=== PATIENT | male | born 1995 ===

== ENCOUNTER 2021-05-27 16:52 | Emergency (ER) | payer SELFPAY ==
[2021-05-27] MEDS ORDERED: LIDOCAINE-MPF (1%) 10 MG/1 ML VIAL 5 ML INFILTRATI ONE (21:33)
[2021-05-27 21:36] LABS: Bilirubin,Urine NEG (Negative); Blood,Urine NEG (Negative); Color,Urine Yellow (Yellow); Mucus,Urine FEW /HPF; Protein,Urine <15 mg/dL mg/dL (Negative); RBC,Urine < 1.0 /HPF (0.0-6.0)
--- NOTE | 2021-05-27 21:56 | Emergency Department Report ---
ED Male HPI - General Chief complaint: Urogenital-Male Stated complaint: BURNING URINATION Source: patient Mode of arrival: Ambulatory Limitations: No Limitations - History of Present Illness Initial comments: Patient is a 25-year-old male with no past medical history presented to the ED with complaint of acute onset persistent dysuria, penile discharge, urinary frequency and urgency for the last 5 days. Patient stated that he had unprotected sexual intercourse about 1 week ago with a new sexual partner. Patient denies testicular pain, dizziness, syncope, chest pain, shortness of breath, abdominal pain, back pain, hematuria, fever and chills or nausea and vomiting. MD Complaint: penile discharge, dysuria -: Sudden, days(s) (5) Location: penis Radiation: none Severity: severe Severity scale (0 -10): 7 Quality: aching, burning Consistency: constant Improves with: none Worsens with: urination denies other symptoms, discharge, dysuria. denies: swelling, mass, rash, urinary retention, blood in urine, fever, nausea/vomiting - Related Data Sexually active: Yes Previous Rx's Medication Instructions Recorded Last Taken Type Doxycycline Hyclate 100 mg PO Q12H #28 capsule 05/27/21 Unknown Rx Allergies Allergy/AdvReac Type Severity Reaction Status Date / Time No Known Allergies Allergy Unverified 05/27/21 20:09 ED Review of Systems ROS: Stated complaint: BURNING URINATION Other details as noted in HPI Constitutional: malaise. denies: chills Eyes: denies: eye pain, eye discharge, vision change ENT: denies: ear pain, throat pain, dental pain, congestion Respiratory: denies: cough, shortness of breath, wheezing Cardiovascular: denies: chest pain, palpitations Endocrine: no symptoms reported Gastrointestinal: denies: abdominal pain, nausea, diarrhea Genitourinary: urgency, dysuria, frequency, discharge. denies: testicular pain, testicular mass Musculoskeletal: denies: back pain, joint swelling, arthralgia Skin: denies: rash, lesions Neurological: denies: headache, weakness, paresthesias Psychiatric: denies: anxiety, depression Hematological/Lymphatic: denies: easy bleeding, easy bruising ED Past Medical Hx - Past Medical History Previous Medical History?: No - Surgical History Past Surgical History?: No - Medications Home Medications: Home Medications Medication Instructions Recorded Confirmed Last Taken Type Doxycycline Hyclate 100 mg PO Q12H #28 capsule 05/27/21 Unknown Rx ED Physical Exam - General Limitations: No Limitations General appearance: alert, in no apparent distress - Head Head exam: Present: atraumatic, normocephalic, normal inspection - Eye Eye exam: Present: normal appearance, PERRL, EOMI Pupils: Present: normal accommodation - ENT ENT exam: Present: normal exam, normal orophraynx, mucous membranes moist, TM's normal bilaterally, normal external ear exam - Neck Neck exam: Present: normal inspection, full ROM - Respiratory Respiratory exam: Present: normal lung sounds bilaterally. Absent: respiratory distress, wheezes, rales, rhonchi, chest wall tenderness, accessory muscle use, decreased breath sounds, prolonged expiratory - Cardiovascular Cardiovascular Exam: Present: regular rate, normal rhythm, normal heart sounds. Absent: systolic murmur, diastolic murmur, rubs, gallop - GI/Abdominal GI/Abdominal exam: Present: soft, normal bowel sounds. Absent: tenderness, guarding, rebound, hyperactive bowel sounds, hypoactive bowel sounds, organomegaly, mass - exam: Present: urethral discharge. Absent: scrotal swelling, vertical testicular lie External exam: Absent: normal external exam, erythema, swelling, lesions, ecchymosis, bleeding - Extremities Exam Extremities exam: Present: normal inspection, full ROM, normal capillary refill - Back Exam Back exam: Present: normal inspection, full ROM. Absent: tenderness, CVA tenderness (R), CVA tenderness (L), muscle spasm, paraspinal tenderness, vertebral tenderness - Neurological Exam Neurological exam: Present: alert, oriented X3, CN II-XII intact, normal gait, reflexes normal - Psychiatric Psychiatric exam: Present: normal affect, normal mood - Skin Skin exam: Present: warm, dry, intact, normal color. Absent: rash ED Course Vital Signs 05/27/21 20:07 Temperature 97.8 F Pulse Rate 73 Respiratory 14 Rate Blood Pressure 146/76 O2 Sat by Pulse 99 Oximetry ED Medical Decision Making - Medical Decision Making This is a 25-year-old male with no past medical history presented to the ED with complaint of acute onset persistent dysuria, penile discharge, urinary frequency and urgency for the last 5 days. Patient stated that he had unprotected sexual intercourse about 1 week ago with a new sexual partner. In the ED, patient is alert and oriented x3 and is not in distress. Patient was treated in the ED empirically for suspected urethritis due to chlamydia or gonorrhea with Rocephin 1g IM x 1. Patient was discharged home on pain medications and doxycycline 100 mg every 12 hours for 2 weeks. Patient advised to follow-up follow-up with [facility] for further STD testing including HIV and syphilis. Patient was advised to ensure that his sexual partner also gets tested and treated for suspected STD. Patient advised to return to the ED immediately if symptoms get worse. - Differential Diagnosis Chlamydia urethritis; Gonorrhoea urethritis; UTI; STD exposure Critical care attestation.: If time is entered above; I have spent that time in minutes in the direct care of this critically ill patient, excluding procedure time. ED Disposition Clinical Impression: Gonococcal urethritis in male, STD (sexually transmitted disease), Acute urinary tract infection Disposition: 01 HOME / SELF CARE / HOMELESS Is pt being admited?: No Does the pt Need Aspirin: No Condition: Stable Instructions: Urinary Tract Infection, Adult, [id number], Gonorrhea, Chlamydia, Male Additional Instructions: Take medication with food, drink plenty of fluids and follow-up with [facility] for further STD testing including HIV and syphilis. Ensure that your sexual partner also gets treated for the same. Return to the ED immediately if symptoms get worse. Prescriptions: Doxycycline Hyclate 100 mg PO Q12H #28 capsule Referrals: [facility] [Outside] - 7-10 days Forms: STI Treatment and Prevention Time of Disposition: 22:07 Print Language: HAITIAN
[2021-05-27 22:58] VITALS: BP 120/70
== END 2021-05-27 22:58 | disposition home or self-care (01) ==
LOC: ED 16:52
DX: A54.01 Gonococcal cystitis and urethritis, unspecified (principal); A64 Unspecified sexually transmitted disease; N39.0 Urinary tract infection, site not specified
CPT/HCPCS: 81001; 96372; 99283; J0696; J3490